=== PATIENT | male | born 1965 | race Caucasian/White ===

== ENCOUNTER 2020-01-18 13:59 | Inpatient (IN) | payer MEDICAID, SELFPAY ==
[~2020-01-18] VITALS: Ht 172.7 cm; Wt 77.1 kg
[2020-01-18] MEDS ORDERED: PIPERACILLIN/TAZ 3.375G PREMIX 50 ML IV ONE (14:45)
[2020-01-18] MEDS ORDERED: DEXAMETHASONE 10 MG/ML VIAL IV ONE (14:45)
[2020-01-18] MEDS ORDERED: ALBUTEROL 6.7GM HFA INHALER ORI ONE (14:45)
[2020-01-18] MEDS ORDERED: SODIUM CHLORIDE 0.9% 500 ML IV ONE (15:30)
[2020-01-18 15:41] LABS: HEMATOCRIT. 46.5 % (42.0-52.0); MEAN CORPUSCULAR HEMOGLOBIN 31.5 pg (28.0-32.0); MEAN CORPUSCULAR VOLUME 91.8 fL (80.0-94.0); PLATELET 501 x1000/uL (130-400); RED BLOOD CELL COUNT 5.07 mill/uL (4.7-6.1); RED CELL DISTRIBUTION WIDTH 13.5 % (11.6-14.6)
[2020-01-18 15:49] LABS: CHLORIDE 101 mEq/L (98-107)
[2020-01-18 15:58] LABS: INR 1.2
[2020-01-18 16:06] LABS: FIBRINOGEN > 850 mg/dL (200-400)
[2020-01-18 16:37] LABS: CLARITY URINE CLEAR (CLEAR); COLOR URINE DARK YELLOW (YELLOW); KETONES URINE NEGATIVE (NEGATIVE); LEUKOCYTE ESTERASE URINE NEGATIVE (NEGATIVE); NITRITE URINE NEGATIVE (NEGATIVE); OCCULT BLOOD URINE NEGATIVE (NEGATIVE); PROTEIN URINE TRACE (NEGATIVE); SPECIFIC GRAVITY URINE 1.019 (1.005-1.030)
[2020-01-18 17:03] LABS: PLATELET ESTIMATE INCREASED
[2020-01-18] MEDS ORDERED: AZITHROMYCIN 500 MG TABLET PO NR (22:00)
[2020-01-18] MEDS ORDERED: CEFTRIAXONE 1 G PREMIX 50 ML IV SCH (22:00)
[2020-01-18] MEDS ORDERED: AZITHROMYCIN 500 MG in DEXT 5% WATER 250 ML IV SCH (23:15)
[2020-01-18] MEDS ORDERED: CLONIDINE 0.1MG TABLET PO PRN (23:15)
[2020-01-18] MEDS ORDERED: DOCUSATE SODIUM 100MG CAPSULE PO PRN (23:15)
[2020-01-18] MEDS ORDERED: MAGNESIUM/ALUMINUM HYDROXIDE/SIMETHICONE 30ML UDC PO PRN (23:15)
[2020-01-18] MEDS ORDERED: ACETAMINOPHEN 650MG SUPP PR PRN ×2 (23:15)
[2020-01-18] MEDS ORDERED: NA PHOS,M-B/NA PHOS,DI-BA ENEMA 118ML PR PRN (23:15)
[2020-01-18] MEDS ORDERED: ACETAMINOPHEN 650MG/20.3ML UDC GT PRN (23:15)
[2020-01-18] MEDS ORDERED: HYDROCODONE/ACETAMINOPHEN 5/325MG TABLET PO PRN (23:15)
[2020-01-18] MEDS ORDERED: ONDANSETRON HCL 4MG/2ML INJ IV PRN (23:15)
[2020-01-18] MEDS ORDERED: ALBUTEROL 6.7GM HFA INHALER ORI PRN (23:15)
[2020-01-19] MEDS: ACETAMINOPHEN 650MG/20.3ML UDC GT PRN (00:27)
[2020-01-19] MEDS ORDERED: AZITHROMYCIN 500MG in DEXTROSE 5% WATER 250ML IV NR (01:00)
[2020-01-19] MEDS ORDERED: DEXAMETHASONE 10 MG/ML VIAL IV NR (01:30)
[2020-01-19] MEDS: ENOXAPARIN 40MG/0.4ML SYR SUBCUT SCH (02:14)
[2020-01-19 05:53] LABS: CHLORIDE 104 mEq/L (98-107)
[2020-01-19] MEDS: DEXAMETHASONE 4MG/ML 1ML VIAL IV SCH (10:30)
[2020-01-19] MEDS ORDERED: DEXTROSE 50% WATER 50ML SYRINGE IV PRN (10:30)
[2020-01-19] MEDS: BLOOD SUGAR DIAGNOSTIC STRIP TEST SCH ×3 (11:30→20:58)
[2020-01-19] MEDS: INSULIN LISPRO 100 UNITS/ML SUBCUT SCH ×3 (12:00→20:58)
[2020-01-19 12:54] LABS: BG BASE EXCESS -0.6 mmol/L (-2.0-2.0); BG CARBOXYHEMOGLOBIN 0.3 % (0.5-1.5); BG DEOXYHEMOGLOBIN 7.8 % (0.0-5.0); BG HCO3 ACT 22.5 mmol/L (22.0-26.0); BG METHEMOGLOBIN 0.3 % (0.0-1.5); BG OXYGEN SATURATION 92.2 % (92.0-98.5); BG OXYHEMOGLOBIN 91.6 % (94.0-97.0); BG PCO2 33.4 mmHg (35.0-45.0); BG PH 7.446 (7.350-7.450); BG PO2 60.6 mmHg (75.0-100.0); BG SAMPLE SITE RIGHT RADIAL; BG TOTAL HEMOGLOBIN 18.2 g/dL (12.0-18.0); BG VENT MODE MASK - NRB
[2020-01-19] MEDS ORDERED: CEFTRIAXONE 1 G PREMIX 50 ML IV SCH (16:00)
[2020-01-19 18:06] LABS: HEMATOCRIT. 50.9 % (42.0-52.0); MEAN CORPUSCULAR VOLUME 92.7 fL (80.0-94.0); MEAN PLATELET VOLUME 9.4 fl (7.4-10.4); PLATELET 581 x1000/uL (130-400); RED BLOOD CELL COUNT 5.49 mill/uL (4.7-6.1); RED CELL DISTRIBUTION WIDTH 13.5 % (11.6-14.6)
[2020-01-19 18:07] LABS: CHLORIDE 107 mEq/L (98-107)
[2020-01-19 19:45] LABS: PLATELET ESTIMATE INCREASED
[2020-01-19] MEDS ORDERED: AZITHROMYCIN 250 MG TABLET PO SCH (21:00)
[2020-01-20] MEDS ORDERED: AZITHROMYCIN 250 MG in DEXT 5% WATER 250 ML IV SCH (01:00)
[2020-01-20] MEDS: ENOXAPARIN 40MG/0.4ML SYR SUBCUT SCH (01:19)
[2020-01-20] MEDS: AZITHROMYCIN 500MG in DEXTROSE 5% WATER 250ML IV SCH (01:19)
[2020-01-20] MEDS: BLOOD SUGAR DIAGNOSTIC STRIP TEST SCH ×4 (06:30→21:00)
[2020-01-20] MEDS: INSULIN LISPRO 100 UNITS/ML SUBCUT SCH ×4 (06:31→21:00)
[2020-01-20] MEDS: DEXAMETHASONE 4MG/ML 1ML VIAL IV SCH (08:41)
[2020-01-20 11:00] VITALS: BP 120/73
[2020-01-20] MEDS: ACETAMINOPHEN 650MG/20.3ML UDC GT PRN (14:09)
[2020-01-20] MEDS: GUAIFENESIN 200MG/10ML SUGAR FREE UDC PO PRN (14:10)
[2020-01-20 18:00] VITALS: BP 113/71
[2020-01-20] MEDS: CEFTRIAXONE 1,000 MG in DEXTROSE 5% WATER 50 ML IV SCH (18:11)
[2020-01-20 20:00] VITALS: BP 125/77
[2020-01-20 22:40] LABS: BASOPHILS % 0.7 % (0.0-2.0); EOSINOPHILS % 0.2 % (0.0-5.0); HEMATOCRIT. 46.2 % (42.0-52.0); HEMOGLOBIN. 15.7 g/dL (14.0-18.0); LYMPHOCYTES % 10.3 % (20.0-50.0); MEAN CORPUSCULAR HEMOGLOBIN 31.7 pg (28.0-32.0); MEAN CORPUSCULAR VOLUME 93.5 fL (80.0-94.0); MEAN PLATELET VOLUME 9.2 fl (7.4-10.4); MONOCYTES % 8.3 % (2.0-8.0); NEUTROPHILS % 80.5 % (40.0-76.0); PLATELET 533 x1000/uL (130-400); RED BLOOD CELL COUNT 4.94 mill/uL (4.7-6.1); RED CELL DISTRIBUTION WIDTH 13.5 % (11.6-14.6)
[2020-01-20 22:46] LABS: CHLORIDE 107 mEq/L (98-107)
[2020-01-21] VITALS: BP 117/73
[2020-01-21] MEDS: AZITHROMYCIN 500MG in DEXTROSE 5% WATER 250ML IV SCH (02:33)
[2020-01-21] MEDS: ENOXAPARIN 40MG/0.4ML SYR SUBCUT SCH ×2 (02:33→21:55)
[2020-01-21] MEDS: ACETAMINOPHEN 650MG/20.3ML UDC GT PRN ×2 (02:38→21:55)
[2020-01-21 04:00] VITALS: BP 107/70
[2020-01-21] MEDS: BLOOD SUGAR DIAGNOSTIC STRIP TEST SCH ×4 (07:16→21:00)
[2020-01-21] MEDS: INSULIN LISPRO 100 UNITS/ML SUBCUT SCH ×4 (07:16→21:00)
[2020-01-21 08:00] VITALS: BP 119/72
[2020-01-21] MEDS: DEXAMETHASONE 4MG/ML 1ML VIAL IV SCH (10:15)
[2020-01-21] MEDS: GUAIFENESIN 200MG/10ML SUGAR FREE UDC PO PRN (11:58)
[2020-01-21 12:00] VITALS: BP 122/70
[2020-01-21 16:00] VITALS: BP 135/70
[2020-01-21] MEDS: CEFTRIAXONE 1,000 MG in DEXTROSE 5% WATER 50 ML IV SCH (17:20)
[2020-01-21 20:00] VITALS: BP 124/76
[2020-01-22] VITALS: BP 118/81
[2020-01-22] MEDS: AZITHROMYCIN 500MG in DEXTROSE 5% WATER 250ML IV SCH (01:33)
[2020-01-22 04:00] VITALS: BP 127/67
[2020-01-22] MEDS: BLOOD SUGAR DIAGNOSTIC STRIP TEST SCH ×4 (07:09→21:17)
[2020-01-22] MEDS: INSULIN LISPRO 100 UNITS/ML SUBCUT SCH ×4 (07:09→21:00)
[2020-01-22 08:00] VITALS: BP 109/71
[2020-01-22] MEDS: DEXAMETHASONE 4MG/ML 1ML VIAL IV SCH (09:59)
[2020-01-22 12:00] VITALS: BP 117/73
[2020-01-22] MEDS: GUAIFENESIN 200MG/10ML SUGAR FREE UDC PO PRN (14:10)
[2020-01-22 16:00] VITALS: BP 125/73
[2020-01-22] MEDS: CEFTRIAXONE 1,000 MG in DEXTROSE 5% WATER 50 ML IV SCH (17:33)
[2020-01-22 20:00] VITALS: BP 113/75
[2020-01-22] MEDS: ENOXAPARIN 40MG/0.4ML SYR SUBCUT SCH (22:19)
[2020-01-23] VITALS: BP 122/72
[2020-01-23] MEDS: AZITHROMYCIN 500MG in DEXTROSE 5% WATER 250ML IV SCH (01:31)
[2020-01-23] MEDS: ACETAMINOPHEN 650MG/20.3ML UDC GT PRN (01:50)
[2020-01-23 04:00] VITALS: BP 116/76
[2020-01-23] MEDS: BLOOD SUGAR DIAGNOSTIC STRIP TEST SCH ×4 (07:12→20:08)
[2020-01-23 08:00] VITALS: BP 119/73
[2020-01-23] MEDS: INSULIN LISPRO 100 UNITS/ML SUBCUT SCH ×4 (08:10→20:08)
[2020-01-23] MEDS: DEXAMETHASONE 4MG/ML 1ML VIAL IV SCH (10:26)
[2020-01-23 12:00] VITALS: BP 118/72
[2020-01-23 16:00] VITALS: BP 119/72
[2020-01-23] MEDS: CEFTRIAXONE 1,000 MG in DEXTROSE 5% WATER 50 ML IV SCH (17:30)
[2020-01-23 20:00] VITALS: BP 118/74
[2020-01-23] MEDS: ENOXAPARIN 40MG/0.4ML SYR SUBCUT SCH (20:30)
[2020-01-23] MEDS: GUAIFENESIN 600MG ER TABLET PO SCH (20:31)
[2020-01-23] MEDS: GUAIFENESIN 200MG/10ML SUGAR FREE UDC PO PRN (20:36)
[2020-01-23 20:58] LABS: HEMATOCRIT. 48.7 % (42.0-52.0); HEMOGLOBIN. 16.4 g/dL (14.0-18.0); MEAN CORPUSCULAR HEMOGLOBIN 31.2 pg (28.0-32.0); MEAN CORPUSCULAR VOLUME 92.3 fL (80.0-94.0); MEAN PLATELET VOLUME 9.9 fl (7.4-10.4); PLATELET 462 x1000/uL (130-400); RED BLOOD CELL COUNT 5.28 mill/uL (4.7-6.1); RED CELL DISTRIBUTION WIDTH 13.4 % (11.6-14.6)
[2020-01-23 21:12] LABS: CHLORIDE 102 mEq/L (98-107)
[2020-01-23 21:15] LABS: PLATELET ESTIMATE INCREASED
[2020-01-24 00:23] VITALS: BP 121/72
[2020-01-24 04:00] VITALS: BP 96/57
[2020-01-24] MEDS: BLOOD SUGAR DIAGNOSTIC STRIP TEST SCH ×4 (06:10→21:04)
[2020-01-24 08:00] VITALS: BP 107/66
[2020-01-24] MEDS: INSULIN LISPRO 100 UNITS/ML SUBCUT SCH ×4 (08:10→22:39)
[2020-01-24] MEDS: GUAIFENESIN 600MG ER TABLET PO SCH ×2 (08:59→21:05)
[2020-01-24] MEDS: DEXAMETHASONE 4MG/ML 1ML VIAL IV SCH (09:03)
[2020-01-24 12:00] VITALS: BP 109/70
[2020-01-24 16:00] VITALS: BP_SYST 156; BP_DIAS 70; BP_DIAS 74
[2020-01-24] MEDS: CEFTRIAXONE 1,000 MG in DEXTROSE 5% WATER 50 ML IV SCH (16:05)
[2020-01-24 20:00] VITALS: BP 119/73
[2020-01-24] MEDS: ENOXAPARIN 40MG/0.4ML SYR SUBCUT SCH (21:05)
[2020-01-25] VITALS (8 sets, daily range): BP systolic 112–126; BP diastolic 62–78
[2020-01-25] MEDS: BLOOD SUGAR DIAGNOSTIC STRIP TEST SCH ×4 (05:24→21:00)
[2020-01-25] MEDS: INSULIN LISPRO 100 UNITS/ML SUBCUT SCH ×4 (07:20→21:00)
[2020-01-25] MEDS: GUAIFENESIN 600MG ER TABLET PO SCH ×2 (09:34→20:59)
[2020-01-25] MEDS: DEXAMETHASONE 4MG/ML 1ML VIAL IV SCH (09:34)
[2020-01-25] MEDS: ENOXAPARIN 40MG/0.4ML SYR SUBCUT SCH (20:59)
[2020-01-26] VITALS: BP 116/73
[2020-01-26 04:00] VITALS: BP 113/71
[2020-01-26] MEDS: BLOOD SUGAR DIAGNOSTIC STRIP TEST SCH ×4 (06:23→20:15)
[2020-01-26 08:00] VITALS: BP 134/76
[2020-01-26] MEDS: INSULIN LISPRO 100 UNITS/ML SUBCUT SCH ×4 (08:10→21:25)
[2020-01-26] MEDS: GUAIFENESIN 600MG ER TABLET PO SCH ×2 (10:03→21:24)
[2020-01-26] MEDS: DEXAMETHASONE 4MG/ML 1ML VIAL IV SCH (10:03)
[2020-01-26 12:00] VITALS: BP 114/71
[2020-01-26 16:00] VITALS: BP 113/78
[2020-01-26 20:00] VITALS: BP 100/76
[2020-01-26] MEDS: ENOXAPARIN 40MG/0.4ML SYR SUBCUT SCH (21:24)
[2020-01-27] VITALS: BP 116/80
[2020-01-27 04:00] VITALS: BP 111/74
[2020-01-27] MEDS: BLOOD SUGAR DIAGNOSTIC STRIP TEST SCH ×4 (05:57→20:16)
[2020-01-27 08:00] VITALS: BP 122/77
[2020-01-27] MEDS: INSULIN LISPRO 100 UNITS/ML SUBCUT SCH ×4 (08:10→20:17)
[2020-01-27] MEDS: DEXAMETHASONE 4MG/ML 1ML VIAL IV SCH (09:41)
[2020-01-27] MEDS: GUAIFENESIN 600MG ER TABLET PO SCH ×2 (09:41→20:19)
[2020-01-27 12:00] VITALS: BP 113/72
[2020-01-27 16:00] VITALS: BP 120/75
[2020-01-27 20:00] VITALS: BP 111/73
[2020-01-27] MEDS: ENOXAPARIN 40MG/0.4ML SYR SUBCUT SCH (20:16)
[2020-01-27] MEDS: DIPHENHYDRAMINE 50MG/ML VIAL IV PRN (20:18)
[2020-01-27 21:26] LABS: HEMATOCRIT 46.6 % (42.0-52.0); HEMOGLOBIN 16.2 g/dL (14.0-18.0); MEAN CORPUSCULAR HEMOGLOBIN 31.6 pg (28.0-32.0); MEAN CORPUSCULAR VOLUME 91.2 fL (80.0-94.0); PLATELET 324 x1000/uL (130-400); RED BLOOD CELL COUNT 5.11 mill/uL (4.7-6.1); RED CELL DISTRIBUTION WIDTH 13.4 % (11.6-14.6)
[2020-01-27 21:37] LABS: CHLORIDE 103 mEq/L (98-107)
[2020-01-28] VITALS: BP 121/71
[2020-01-28 04:00] VITALS: BP 113/69
[2020-01-28 07:32] LABS: CHLORIDE 102 mEq/L (98-107)
[2020-01-28] MEDS: BLOOD SUGAR DIAGNOSTIC STRIP TEST SCH ×4 (07:40→20:08)
[2020-01-28 08:00] VITALS: BP 107/67
[2020-01-28] MEDS: INSULIN LISPRO 100 UNITS/ML SUBCUT SCH ×4 (08:10→20:08)
[2020-01-28 08:34] LABS: BASOPHILS % 0.4 % (0.0-2.0); EOSINOPHILS % 0.4 % (0.0-5.0); HEMATOCRIT. 47.5 % (42.0-52.0); HEMOGLOBIN. 16.3 g/dL (14.0-18.0); LYMPHOCYTES % 24.3 % (20.0-50.0); MEAN CORPUSCULAR HEMOGLOBIN 31.5 pg (28.0-32.0); MEAN CORPUSCULAR VOLUME 91.7 fL (80.0-94.0); MEAN PLATELET VOLUME 11.2 fl (7.4-10.4); MONOCYTES % 9.8 % (2.0-8.0); NEUTROPHILS % 65.1 % (40.0-76.0); PLATELET 304 x1000/uL (130-400); RED BLOOD CELL COUNT 5.17 mill/uL (4.7-6.1); RED CELL DISTRIBUTION WIDTH 13.3 % (11.6-14.6)
[2020-01-28] MEDS: DEXAMETHASONE 4MG/ML 1ML VIAL IV SCH (09:32)
[2020-01-28] MEDS: GUAIFENESIN 600MG ER TABLET PO SCH ×2 (09:32→21:43)
[2020-01-28 12:00] VITALS: BP 118/71
[2020-01-28] MEDS ORDERED: THROAT LOZENGES-BENZOCAINE/MENTH/CETYLPYRD CL LOZENGES MM PRN (14:45)
[2020-01-28 16:00] VITALS: BP 126/70
[2020-01-28] MEDS: BENZONATATE 100MG CAPSULE PO SCH ×2 (17:17→21:42)
[2020-01-28 20:00] VITALS: BP 123/79
[2020-01-28] MEDS: ENOXAPARIN 40MG/0.4ML SYR SUBCUT SCH (21:42)
[2020-01-29] VITALS (7 sets, daily range): BP systolic 113–128; BP diastolic 60–75
[2020-01-29 02:22] LABS: BG CARBOXYHEMOGLOBIN 0.3 % (0.5-1.5); BG DEOXYHEMOGLOBIN 3.4 % (0.0-5.0); BG FRACTION INSPIRED OXYGEN 36; BG HCO3 ACT 26.3 mmol/L (22.0-26.0); BG METHEMOGLOBIN 0.4 % (0.0-1.5); BG OXYGEN SATURATION 96.6 % (92.0-98.5); BG OXYHEMOGLOBIN 95.9 % (94.0-97.0); BG PH 7.435 (7.350-7.450); BG PO2 83.3 mmHg (75.0-100.0); BG TOTAL HEMOGLOBIN 18.1 g/dL (12.0-18.0); BG VENT MODE NASAL CANNULA
[2020-01-29] MEDS: BLOOD SUGAR DIAGNOSTIC STRIP TEST SCH ×4 (06:29→20:48)
[2020-01-29] MEDS: BENZONATATE 100MG CAPSULE PO SCH ×2 (06:30→15:10)
[2020-01-29] MEDS: INSULIN LISPRO 100 UNITS/ML SUBCUT SCH ×4 (07:58→20:49)
[2020-01-29] MEDS: GUAIFENESIN 600MG ER TABLET PO SCH ×2 (09:11→20:57)
[2020-01-29] MEDS: DEXAMETHASONE 4MG/ML 1ML VIAL IV SCH (09:11)
[2020-01-29] MEDS: GUAIFENESIN 200MG/10ML SUGAR FREE UDC PO PRN (20:52)
[2020-01-29] MEDS: ENOXAPARIN 40MG/0.4ML SYR SUBCUT SCH (20:53)
[2020-01-29 23:25] LABS: BG BASE EXCESS 1.7 mmol/L (-2.0-2.0); BG CARBOXYHEMOGLOBIN 0.6 % (0.5-1.5); BG DEOXYHEMOGLOBIN 1.9 % (0.0-5.0); BG FRACTION INSPIRED OXYGEN 28; BG HCO3 ACT 25.3 mmol/L (22.0-26.0); BG METHEMOGLOBIN 0.4 % (0.0-1.5); BG OXYGEN SATURATION 98.1 % (92.0-98.5); BG OXYHEMOGLOBIN 97.1 % (94.0-97.0); BG PCO2 36.6 mmHg (35.0-45.0); BG PH 7.457 (7.350-7.450); BG PO2 100.8 mmHg (75.0-100.0); BG TOTAL HEMOGLOBIN 16.6 g/dL (12.0-18.0); BG VENT MODE NASAL CANNULA
[2020-01-30] VITALS (7 sets, daily range): BP systolic 102–118; BP diastolic 51–72
[2020-01-30] MEDS: BENZONATATE 100MG CAPSULE PO SCH ×3 (00:49→15:39)
[2020-01-30] MEDS: ALBUTEROL 6.7GM HFA INHALER ORI SCH ×5 (05:35→23:16)
[2020-01-30] MEDS: BLOOD SUGAR DIAGNOSTIC STRIP TEST SCH ×4 (06:28→21:00)
[2020-01-30] MEDS: INSULIN LISPRO 100 UNITS/ML SUBCUT SCH ×4 (06:29→21:00)
[2020-01-30] MEDS: GUAIFENESIN 600MG ER TABLET PO SCH ×2 (08:25→23:13)
[2020-01-30] MEDS ORDERED: ALBU6.7H9 INH (09:34)
[2020-01-30] MEDS ORDERED: DEXA4TAB69 MT (09:35)
[2020-01-31] VITALS: BP 106/66
[2020-01-31 04:00] VITALS: BP 101/58
[2020-01-31] MEDS: BLOOD SUGAR DIAGNOSTIC STRIP TEST SCH ×4 (06:56→21:44)
[2020-01-31] MEDS: ALBUTEROL 6.7GM HFA INHALER ORI SCH ×3 (07:04→17:49)
[2020-01-31] MEDS: INSULIN LISPRO 100 UNITS/ML SUBCUT SCH ×4 (07:26→21:00)
[2020-01-31 08:00] VITALS: BP 110/61
[2020-01-31] MEDS: GUAIFENESIN 600MG ER TABLET PO SCH ×2 (08:38→21:43)
[2020-01-31 12:00] VITALS: BP 122/75
[2020-01-31] MEDS: GUAIFENESIN 200MG/10ML SUGAR FREE UDC PO PRN ×2 (12:48→17:50)
[2020-01-31 16:00] VITALS: BP 118/69
[2020-01-31 20:00] VITALS: BP 120/63
[2020-02-01] VITALS: BP 102/62
[2020-02-01] MEDS: ALBUTEROL 6.7GM HFA INHALER ORI SCH ×3 (00:29→12:05)
[2020-02-01] MEDS: DIPHENHYDRAMINE 50MG/ML VIAL IV PRN (00:35)
[2020-02-01 04:00] VITALS: BP 100/65
[2020-02-01] MEDS: BLOOD SUGAR DIAGNOSTIC STRIP TEST SCH ×2 (07:39→12:06)
[2020-02-01] MEDS: INSULIN LISPRO 100 UNITS/ML SUBCUT SCH ×2 (07:40→12:06)
[2020-02-01 08:00] VITALS: BP_SYST 111; BP_SYST 118; BP_DIAS 55
[2020-02-01] MEDS: GUAIFENESIN 600MG ER TABLET PO SCH (08:42)
[2020-02-01 12:00] VITALS: BP 113/57
[2020-02-01 16:00] VITALS: BP 120/79
[2020-02-01 16:16] VITALS: BP 120/79
== END 2020-02-01 17:30 | disposition home or self-care (01) | DRG 720 ==
LOC: ER 14:13 → EDBEDREQTM 16:04 → MICUSO 17:41 → EDBEDREQTM 17:45 → EDBEDREQ 17:45 → 6WST 01-20 08:34 → MICUSO 01-20 08:41 → 7WST 01-20 08:59
PROVIDERS: ADMIT Family Medicine; ATTEND Family Medicine
DX: A41.89 Other specified sepsis (principal); U07.1 COVID-19; J96.01 Acute respiratory failure with hypoxia; J12.89 Other viral pneumonia; E43 Unspecified severe protein-calorie malnutrition; E87.1 Hypo-osmolality and hyponatremia; E11.9 Type 2 diabetes mellitus without complications; D47.3 Essential (hemorrhagic) thrombocythemia; R74.01 Elevation of levels of liver transaminase levels; Z68.25 Body mass index [BMI] 25.0-25.9, adult
CPT/HCPCS: 36415; 36600; 71045; 80048; 80053; 80076; 81003; 82040; 82375; 82728; 82805; 82962; 83036; 83605; 83880; 84145; 84484; 85025; 85027; 85384; 86140; 87426; 87804; 93005; 94640; 96365; 99291; C1893; J0456; J0696; J1100; J1200; J1650; J1815; J2543; J7030; J7040; J7060; U0003